=== PATIENT | male | born 1985 | race Caucasian/White ===

== ENCOUNTER 2024-03-01 03:32 | Emergency (ER) | payer SELFPAY ==
[~2024-03-01] VITALS: Ht 170.2 cm; Wt 72.6 kg
[2024-03-01] MEDS ORDERED: IBUP-1953 PO (03:51)
[2024-03-01] MEDS ORDERED: CEPH500T PO (03:51)
[2024-03-01 04:04] VITALS: BP 121/81; TEMP 98.1; O2SAT 99
== END 2024-03-01 04:05 | disposition home or self-care (01) ==
LOC: ER 03:39
DX: L03.032 Cellulitis of left toe (principal)